=== PATIENT | female | born 1955 | race Caucasian/White ===

== ENCOUNTER 2025-03-25 08:56 | Outpatient (AMB) | payer BC, SELFPAY ==
--- NOTE | 2025-03-25 09:06 | A.OFFVIS_ITS ---
Intake Visit Reasons: c/o ongoing Rt heel pain Intake Note: Loren is a 69 year old female who presents today as a new patient for a evaluation of her right heel pain. Patient reports ongoing pain since July. She states that her pain is worse when she is putting full pressure on her right foot. Patient states when she is resting her pain is better. Allergies No Known Allergies Allergy (Verified 03/25/25 09:13) HPI HPI c/o ongoing Rt heel pain: Details: The patient is a 69 year old female presenting with right heel pain. The patient reports the onset of right heel pain at the end of July after a period of strenuous activity. Initially, the pain was severe enough to limit her walking to only short distances. Her symptoms are currently worse in the morning upon taking her first steps. Over the past month, she has noticed the pain is more prominent when she is resting, describing it as a stabbing sensation while in bed. She has not received any specific treatment and has only reduced her walking activities. Social History: - Functional Status: The patient used to walk regularly but has stopped due to pain and is now limited to walking for her daily routine. - Level of Activity: She reports a recent history of strenuous physical activity, which precipitated her symptoms. [facility] Social History (Updated 03/25/25 @ 09:28 by Cleo Rodney) Alcohol intake: current Alcohol intake frequency: holidays/special occasions only Patient Tobacco Use Status: Never used Tobacco Current occupational status: employed Current occupation: right hand dominant Review of Systems Const All systems reviewed & are unremarkable except as noted in HPI and below Physical Exam Extrem Other: *Bilateral Lower Extremity Focused Exam Vascular: DP/PT 2/4, CFT<3s to digits, TG warm to cool, no pedal edema Derm: No open wounds or lacerations. Neuro: Protective sensation grossly intact to bilateral lower extremities. MSK: Mild Tenderness on palpation of the plantar medial calcaneal tubercle right heel, No Tenderness on palpation along the distal insertion of the Achilles tendon, 5 Degrees of right ankle dorsiflexion on knee extension, 5-7 degrees of ankle dorsiflexion on knee flexion. Semi rigid high arch feet bilaterally, plantar flexed 1st ray, neutral calcaneus on weight-bearing. Assessment & Plan Assessment & Plan (1) Plantar fasciitis of right foot: Code(s): M72.2 - Plantar fascial fibromatosis Category: Medical Plan: * - The clinical presentation is consistent with plantar fasciitis, given the history of post-static dyskinesia and exacerbation with overuse. * - Her high-arched foot structure is a contributing factor. * - A home exercise program focusing on plantar fascia and calf stretching will be initiated; handouts were provided. * - Shoe wear modifications were discussed, including continuing to use supportive sneakers with thick heel padding or a rocker-bottom sole. * - Rolling the foot on a frozen water bottle or tennis ball was suggested for combined cryotherapy and massage. * - An x-ray is not required at present but will be considered if symptoms fail to improve. * - Corticosteroid injections were mentioned as a future option. * - A follow-up appointment is advised in 4-6 weeks Coding Level of Care Code New Pt Level 4 (98122) Diagnoses Plantar fasciitis of right foot M72.2 Time Spent (min) 30
--- OUTSIDE RECORDS SUMMARY | 2025-03-25 09:36 | XMS_ITS | Encounter Summary ---
Author Organization [facility] Address [address] [place] [address] Care Team Providers Care Policy Services Representative Name Role Phone Akhil Mojica DO Primary Care Provider [phone] Encounter Details Date Type Department Care Team (Late st Contact Info) Description 07/08/2024 Lab Requisition [facility] - Main Lab [address] [place] [address] [facility], [address] [place] [address] Urinary tract infection, site not specified; Hematuria, unspecified Social History Tobacco Use Types Packs/Day Years Used Date Smoking Tobacco: Never Assessed Comments Unknown Sex and Gender Information Value Date Recorded Sex Assigned at Female 09/08/2024 6:29 PM EDT Legal Sex Female 9:09 AM EST Gender Identity Female 09/08/2024 6:29 PM EDT Sexual Orientation Straight 09/08/2024 6: 29 PM EDT documented as of this encounter Plan of Treatment Not on file documented as of this encounter Procedures Procedure Name Priority Date/Time Associated Diagnosis Comments URINALYSIS WITH REFLEX MICROSCOPIC Routine 07/08/2024 12:00 AM EDT Urinary tract infection, site not specified Hematuria, unspecified URINALYSIS WITH REFLEX MICROSCOPIC Routine 07/08/2024 12:00 AM EDT Urinary tract infection, site not specified Hematuria, unspecified CULTURE URINE Routine 07/08/2024 12:00 AM EDT Urinary tract infection, site not specified Hematuria, unspecified documented in this encounter Results * (ABNORMAL) Urinalysis with reflex microscopic (07/08/2024 12:00 AM EDT) Specific [place] Urine 1.007 1.003 - 1.030 LAB URINALYSIS - AUTOMATED METHOD 07/08/2024 8:[address] [facility] pH, Urine 5.5 5.0 - 8.0 pH LAB URINALYSIS - AUTOMATED METHOD 07/08/2024 8:[address] [facility] Leukocytes, Urine Large(A) Negative LAB URINALYSIS - AUTOMATED METHOD 07/08/2024 8:[address] [facility] Nitrite, Urine Negative Negative LAB URINALYSIS - AUTOMATED METHOD 07/08/2024 8:[address] [facility] Protein, Urine Negative <=Trace mg/dL LAB URINALYSIS - AUTOMATED METHOD 07/08/2024 8:[address] [facility] Glucose, Urine Negative Negative mg/dL LAB URINALYSIS - AUTOMATED METHOD 07/08/2024 8:[address] [facility] Ketones, Urine Negative Negative mg/dL LAB URINALYSIS - AUTOMATED METHOD 07/08/2024 8:[address] [facility] Urobilinogen, Urine 0.2 0.2 - 1.0 mg/dL LAB URINALYSIS - AUTOMATED METHOD 07/08/2024 8:[address] [facility] Bilirubin, Urine Negative Negative LAB URINALYSIS - AUTOMATED METHOD 07/08/2024 8:[address] [facility] Blood, Urine Trace(A) Negative LAB URINALYSIS - AUTOMATED METHOD 07/08/2024 8:[address] [facility] RBC, Urine 1.2 0 - 4 /HPF LAB URINALYSIS - AUTOMATED METHOD 07/08/2024 8:[address] [facility] WBC, Urine 148.4(H) 0 - 4 /HPF LAB URINALYSIS - AUTOMATED METHOD 07/08/2024 8:26 PM EDT [facility] Squamous Epithelial, Urine 37 0 - 60 /LPF LAB URINALYSIS - AUTOMATED METHOD 07/08/2024 8:26 PM EDT [facility] Bacteria, Urine Many(A) Negative /HPF LAB URINALYSIS - AUTOMATED METHOD 07/08/2024 8:26 PM EDT [facility] Hyaline Casts, Urine 2.0 0 - 3 /LPF LAB URINALYSIS - AUTOMATED METHOD 07/08/2024 8:26 PM EDT [facility] Urine Urine specimen obtained by clean catch procedure / Unknown 07/08/2024 07/08/2024 7:30 PM EDT [facility] URINE ORDERABLES Final Resul t [facility] [address] [place] [address], * (ABNORMAL) Culture urine (07/08/2024 12:00 AM EDT) Culture, Urine >100,000 CFU/mL Escherichia coli(A) HILDA 07/10/2024 9:40 AM EDT [facility] Urine Urine specimen obtained by clean catch procedure / Unknown 07/08/2024 07/08/2024 7:30 PM EDT Narrative Organism Antibiotic Method Susceptibility Escherichia coli Amoxicillin/Clavulanate HILDA <=2 ug/ml: Susceptible Escherichia coli Ampicillin/Sulbactam HILDA <=2 ug/ml: Susceptible Escherichia coli Piperacillin/Tazobactam HILDA <=4 ug/ml: Susceptible Escherichia coli Cefazolin (Urine) HILDA <=1 ug/ml: Susceptible Escherichia coli Cefoxitin HILDA <=4 ug/ml: Susceptible Escherichia coli Ceftazidime HILDA <=0.5 ug/ml: Susceptible Escherichia coli Ceftriaxone HILDA <=0.25 ug/ml: Susceptible Escherichia coli Cefepime HILDA <=0.12 ug/ml: Susceptible Escherichia coli Meropenem HILDA <=0.25 ug/ml: Susceptible Escherichia coli Amikacin HILDA 4 ug/ml: Susceptible Escherichia coli Gentamicin HILDA <=1 ug/ml: Susceptible Escherichia coli Ciprofloxacin HILDA <=0.06 ug/ml: Susceptible Escherichia coli Levofloxacin HILDA <=0.12 ug/ml: Susceptible Escherichia coli Nitrofurantoin HILDA <=16 ug/ml: Susceptible Escherichia coli Trimethoprim/Sulfamethoxazole HILDA <=20 ug/ml: Susceptible [facility] MICROBIOLOGY - GENERAL ORDER [place] Final Result [facility] [address] [place] [address], documented in this encounter Visit Diagnoses Diagnosis Urinary tract infection, site not specified Hematuria, unspecified documented in this encounter Care Teams Policy Services Representative Relationship Specialty Start Date End Date Akhil Mojica DO [address] [place] [phone] PCP - General Internal Medicine 05/13/24 documented as of this encounter
--- OUTSIDE RECORDS SUMMARY | 2025-03-25 09:36 | XMS_ITS | Clinical Summary ---
Author Organization [address] [facility] Address [address] [place] [address] Phone Care Team Providers Care Palliative Care Physician Name Role Phone Akhil Mojica DO Primary Care Provider [phone] Encounters Date Type Department Care Team Description 02/26/2025 12:15 PM EST Lab Draw Station - [place] [address] [place] [address] Hyperlipidemia, unspecified from Last 3 Months Social History Tobacco Use Types Packs/Day Years Used Date Smoking Tobacco: Never Assessed Comments Unknown Sex and Gender Information Value Date Recorded Sex Assigned at Female 09/08/2024 6:29 PM EDT Legal Sex Female 9:09 AM EST Gender Identity Female 09/08/2024 6:29 PM EDT Sexual Orientation Straight 09/08/2024 6: 29 PM EDT Plan of Treatment Health Maintenance Due Date Last Done Comments Breast Cancer Screening 1955 Colorectal Cancer Screening: Colonoscopy 1955 [place] Risk Assessment 03/12/2022 Hepatitis C Screening 03/12/2022 Medicare Annual Wellness Visit 03/12/2022 Osteoporosis Screening (Bone Density Screening) 03/12/2022 Social Influencers of Health Screening 03/12/2022 Depression Screening 04/09/2024 COVID-19 Vaccine ( season) 2024 05/09/2022, 02/23/2021, 07/17/2020, Additional history exists Hypertension/CHF/CAD Annual BMP Blood Test 12/30/2025 12/30/2024, 05/13/2024 RSV Immunization Adult Patients (1 - 1-dose 75+ series) 2029 Cholesterol Screening (Lipid Panel) 02/26/2030 02/26/2025, 12/30/2024, 05/30/2024 DTaP,Tdap,and Td Vaccines (2 - Td or Tdap) 09/15/2031 09/14/2021 Pneumococcal Vaccine: 50+ Years Completed 03/13/2023 Zoster Vaccines Completed 09/19/2024, 07/01/2024 Influenza Vaccine Completed 12/30/2024, , 01/19/2023, Additional history exists HIB Vaccines Aged Out No longer eligi ble based on patient's age to complete this topic HPV Vaccines Aged Out No longer eligi ble based on patient's age to complete this topic Hepatitis A Vaccines Aged Out No long er eligible based on patient's age to complete this topic Hepatitis B Vaccines Aged Out No long er eligible based on patient's age to complete this topic IPV Vaccines Aged Out No longer eligi ble based on patient's age to complete this topic MMR Vaccines Aged Out No longer eligi ble based on patient's age to complete this topic Meningococcal ACWY Vaccine Aged Out N o longer eligible based on patient's age to complete this topic Meningococcal B Vaccine Aged Out No l onger eligible based on patient's age to complete this topic RSV Immunization Patients Under 20 months Aged Out No longer eligible based on patient's age to complete this topic Varicella Vaccines Aged Out No longer eligible based on patient's age to complete this topic Procedures Procedure Name Priority Date/Time Associated Diagnosis Comments LIPID PANEL WITH REFLEX TO DIRECT LDL Routine 02/26/2025 12:15 PM EST Hyperlipidemia, unspecified BASIC METABOLIC PANEL Routine 12/30/2024 11:32 AM EDT HTN (hypertension) HLD (hyperlipidemia) LIPID PANEL WITH REFLEX TO DIRECT LDL Routine 12/30/2024 11:32 AM EDT HTN (hypertension) HLD (hyperlipidemia) from Last 3 Months Results * (ABNORMAL) Lipid panel with reflex to direct LDL (02/26/2025 12:15 PM EST) Only the most recent of2 resultswithin the time period is included. Cholesterol 144 0 - 200 mg/dL 02/26/2025 3:53 PM EST [facility] Triglycerides 209(H) 0 - 150 mg/dL 02/26/2025 3:53 PM [facility] HDL 56 >=40 mg/dL 02/26/2025 3:53 PM [facility] LDL Calculated 46 0 - 100 mg/dL 02/26/2025 3:53 PM EST [facility] Comment:Estimated LDL Calcul ated using equation: Total cholesterol - HDL cholesterol - (Triglycerides/5) VLDL Cholesterol Mika 41.8 mg/dL 02/26/2025 3:53 PM [facility] Non HDL Chol. (LDL+VLDL) 88 <145 mg/dL 02/26/2025 3:53 PM [facility] Chol/HDL Ratio 2.6 0.0 - 4.4 02/26/2025 3:53 PM [facility] Blood Venipuncture / Unknown 02/26/2025 12:15 PM EST 02/26/2025 12:15 PM EST [facility] LAB BLOOD ORDERABLES Final Resul t [facility] [address] [place] [address], * Basic metabolic panel (12/30/2024 11:32 AM EDT) [facility] Sodium 136 133 - 145 mmol/L LAB CHEMISTRY METHOD 12/30/2024 3:57 PM EDT [facility] Potassium 3.6 3.5 - 5.5 mmol/L LAB CHEMISTRY METHOD 12/30/2024 3:57 PM EDT [facility] Chloride 103 96 - 110 mmol/L LAB CHEMISTRY METHOD 12/30/2024 3:57 PM EDT [facility] CO2 28 21 - 32 mmol/L LAB CHEMISTRY METHOD 12/30/2024 3:57 PM EDT [facility] Anion Gap 5 3 - 11 LAB CHEMISTRY METHOD 12/30/2024 3:57 PM EDT [facility] Glucose 80 70 - 100 mg/dL LAB CHEMISTRY METHOD 12/30/2024 3:57 PM EDT [facility] BUN 21 5 - 25 mg/dL LAB CHEMISTRY METHOD 12/30/2024 3:57 PM EDT [facility] Creatinine 0.59 0.50 - 1.10 mg/dL LAB CHEMISTRY METHOD 12/30/2024 3:57 PM EDT [facility] eGFR 97 >=60 mL/min/1. 73m2 LAB CHEMISTRY METHOD 12/30/2024 3:57 PM EDT [facility] Comment:Calculation based on the Chronic Kidney Disease Epidemiology Collaboration (CKD-EPI) equation refit without adjustment for race. BUN/Creatinine Ratio 35.6 LAB CHEMISTRY METHOD 12/30/2024 3:57 PM EDT [facility] Calcium 8.9 8.5 - 10.5 mg/dL LAB CHEMISTRY METHOD 12/30/2024 3:57 PM [facility] Blood Venous blood specimen / Unknown Venipuncture / Unknown 12/30/2024 11:32 AM EDT 12/30/2024 11:32 AM EDT [facility] BLOOD ORDERABLES Final Resul t [facility] [address] [place] [address], from Last [address] [facility] - [place] MEDICARE ADVANTAGE Care Teams Palliative Care Physician Relationship Specialty Start Date End Date Akhil Mojica DO [address] [place] [phone] PCP - General Internal Medicine 05/13/24
== END 2025-03-25 09:24 | disposition home or self-care (01) ==
LOC: HO.HPODS 08:57
PROVIDERS: PCP Internal Medicine; Visit Provider Student in an Organized Health Care Education/Training Program
DX: M72.2 Plantar fascial fibromatosis (principal)
CPT/HCPCS: 99204